=== PATIENT | male | born 1995 | race Caucasian/White ===

== ENCOUNTER 2019-06-17 16:40 | Outpatient (CLI) | payer OTHER | END 2019-06-17 16:43 | disposition home or self-care (01) | LOC: RAD 16:40 | DX: I10 Essential (primary) hypertension (principal) ==

== ENCOUNTER 2019-06-18 10:16 | Outpatient (CLI) | payer OTHER | END 2019-06-18 10:20 | disposition home or self-care (01) | LOC: LAB 10:16 | DX: D64.89 Other specified anemias (principal); E03.8 Other specified hypothyroidism; E78.2 Mixed hyperlipidemia; N39.0 Urinary tract infection, site not specified ==

== ENCOUNTER 2019-08-15 10:01 | Outpatient (CLI) | payer OTHER ==
[~2019-08-15] VITALS: Ht 167.6 cm; Wt 86.2 kg
== END 2019-08-15 13:42 | disposition home or self-care (01) ==
LOC: OFIC 805 10:01
DX: H91.8X3 Other specified hearing loss, bilateral (principal); H61.23 Impacted cerumen, bilateral

== ENCOUNTER 2021-09-25 08:13 | Outpatient (CLI) | payer OTHER | END 2021-09-25 08:15 | disposition home or self-care (01) | LOC: LAB 08:13 | PROVIDERS: ATTEND Dermatology MOHS-Micrographic Surgery | DX: D64.9 Anemia, unspecified (principal); R74.01 Elevation of levels of liver transaminase levels; R76.0 Raised antibody titer; N39.0 Urinary tract infection, site not specified; R70.0 Elevated erythrocyte sedimentation rate ==